=== PATIENT | female | born 1985 | race Caucasian/White ===

== ENCOUNTER 2017-02-15 08:51 | Emergency (ER) | payer OTHER ==
[~2017-02-15 08:51] MED LIST: HYDROCODONE BIT1 T11 PO; IBU800 MG PO; LOMOTIL 0.025 M1 TA1 PO; MACROBID100 M1 PO; MOTRIN,RUFEN800 MG PO; MOTRIN800 MG PO; PEN-VEE K500 MG PO; PENICILLIN-VK500 M1 PO; PENICILLIN-VK500 MG PO; TRAMADOL HCL50 MG PO; TRIMOX500 MG PO; ZOFRAN ODT4 MG SL
[2017-02-15 09:37] LABS: B-hCG (QUALITATIVE) NEGATIVE (NEGATIVE); C-REACTIVE PROTEIN 0.61 MG/DL (0-0.3)
[2017-02-15 09:38] LABS: BASO % 0.3 % (0.0-1.0); EOS # 0.2 10*3/uL (0.0-0.4); EOS % 1.8 % (1.0-4.0); HEMATOCRIT 39.2 % (37.0-47.0); HEMOGLOBIN 12.8 g/dl (12.0-16.0); LYMPH # 2.1 10*3/uL (1.3-4.4); LYMPH % 16.6 % (27.0-41.0); MEAN CELL VOLUME 92.7 fl (81.0-99.0); MEAN CORPUSCULAR HGB 30.3 pg (27.0-31.0); MEAN CORPUSCULAR HGB CONC 32.7 g/dl (33.0-37.0); MEAN PLATELET VOLUME 10.4 fl (9.6-12.3); MONO # 0.9 10*3/uL (0.1-1.0); MONO % 6.9 % (3.0-9.0); NEUT # 9.3 10*3/uL (2.3-7.9); NEUT % 74.1 % (47.0-73.0); PLATELET COUNT AUTOMATED 310 10*3/uL (130-400); RED BLOOD COUNT 4.23 10*6/uL (4.10-5.10); RED CELL DISTRI WIDTH 13.2 % (0-14.5); WHITE BLOOD COUNT 12.6 10*3/uL (4.8-10.8)
[2017-02-15 09:43] LABS: BILIRUBIN NEGATIVE (NEGATIVE); BLOOD NEGATIVE (NEGATIVE); CLARITY SL CLOUDY (CLEAR); COLOR YELLOW (YELLOW); GLUCOSE NEGATIVE (NEGATIVE); KETONE NEGATIVE (NEGATIVE); LEUKO ESTERASE NEGATIVE (NEGATIVE); NITRITE NEGATIVE (NEGATIVE); PROTEIN NEGATIVE (NEGATIVE); TROPONIN I < 0.015 ng/ml (<0.045); UROBILINOGEN 0.2 E.U./dl (0.2-1.0)
[2017-02-15 09:47] LABS: URINE AMPHETAMINES < 1000 (1000ng/ml); URINE BARBITURATES < 200 (200ng/ml); URINE COCAINE < 300 (300ng/ml)
[2017-02-15 09:51] LABS: ALBUMIN 3.7 gm/dl (3.1-4.5); ALKALINE PHOSPHATASE 72 U/L (45-117); BILIRUBIN, TOTAL 0.5 mg/dl (0.2-1.0); BUN 6 mg/dl (7-24); CARBON DIOXIDE 25 mmol/L (21-32); CHLORIDE 109 mmol/L (98-107); EST GLOM FILT AFRICAN AMERICAN > 60 ml/min; GLUCOSE 102 mg/dL (65-99); POTASSIUM 3.7 mmol/L (3.5-5.1); SGOT/AST 14 IU/L (3-35); SGPT/ALT 23 U/L (12-78); SODIUM 142 mmol/L (136-145); TOTAL PROTEIN 7.2 gm/dL (6.4-8.2)
[2017-02-15 09:56] LABS: BACTERIA TRACE
[2017-02-15 09:57] LABS: URINE REFLEX COMMENT NO (NO)
[2017-02-15] MEDS ORDERED: CLINDAMYCIN HC300 MG PO (10:12)
[2017-02-15] MEDS ORDERED: Motrin,Rufen800 MG PO (10:12)
[2017-02-15] MEDS ORDERED: ULTRAM50 MG PO (10:12)
[2017-02-15] MEDS ORDERED: PEPCID20 MG PO (10:12)
== END 2017-02-15 10:50 | disposition home or self-care (01) ==
LOC: ED 08:51
PROVIDERS: Emergency Medicine Emergency Medical Services; Family Medicine Adult Medicine
DX: K29.00 Acute gastritis without bleeding (principal); K04.01 Reversible pulpitis; K02.9 Dental caries, unspecified; G43.909 Migraine, unspecified, not intractable, without status migrainosus; F17.200 Nicotine dependence, unspecified, uncomplicated

== ENCOUNTER 2017-02-21 19:42 | Emergency (ER) | payer OTHER ==
[~2017-02-21] VITALS: Ht 172.7 cm; Wt 83.9 kg
[~2017-02-21 19:42] MED LIST changes: +CLINDAMYCIN HC300 MG PO; +Motrin,Rufen800 MG PO; +PEPCID20 MG PO; +ULTRAM50 MG PO
[2017-02-21] MEDS ORDERED: ACETAMINOPHEN500 M5 PO (20:10)
[2017-02-21] MEDS ORDERED: NYSTATIN100000 U/M PO (21:04)
[2017-02-21] MEDS ORDERED: DIFLUCAN150 MG PO (21:04)
[2017-02-21] MEDS ORDERED: CEPHALEXIN500 M1 PO (21:04)
[2017-02-21] MEDS ORDERED: CLARITIN10 MG PO (21:05)
== END 2017-02-21 21:08 | disposition home or self-care (01) ==
LOC: ED 19:42
DX: H65.92 Unspecified nonsuppurative otitis media, left ear (principal); F17.200 Nicotine dependence, unspecified, uncomplicated

== ENCOUNTER 2017-09-03 23:29 | Emergency (ER) | payer OTHER ==
[~2017-09-03] VITALS: Ht 172.7 cm; Wt 83.9 kg
--- NOTE | ~2017-09-03 | EKG ---
[place], [place] ELECTROCARDIOGRAM REPORT NAME: YOSELIN AVILA UNIT #: [id number] ROOM: DOCTOR: REY SANCHEZ MD BIRTHDATE: [birth year] DOS: 09/03/2017 TIME: 2353 hours. Normal sinus rhythm at 60 beats per minute. A short DE interval of 110 milliseconds. Otherwise ECG is normal. No previous tracing is available for comparison. REY SANCHEZ MD CM:EKGRPT:ELECTROCARDIOGRAM REPORT [id number] REY SANCHEZ MD
[~2017-09-03 23:29] MED LIST changes: +ACETAMINOPHEN500 M5 PO; +CEPHALEXIN500 M1 PO; +CLARITIN10 MG PO; +DIFLUCAN150 MG PO; +NYSTATIN100000 U/M PO
[2017-09-03] MEDS ORDERED: PROVENTIL HFA6.7 GM DEVI (23:51)
[2017-09-03] MEDS ORDERED: ZITHROMAX TRI-500 M1 PO (23:51)
== END 2017-09-03 23:32 | disposition home or self-care (01) ==
LOC: ED 23:29
DX: J40 Bronchitis, not specified as acute or chronic (principal); F17.200 Nicotine dependence, unspecified, uncomplicated; G43.909 Migraine, unspecified, not intractable, without status migrainosus

== ENCOUNTER 2018-01-27 14:33 | Emergency (ER) | payer OTHER ==
[~2018-01-27] VITALS: Ht 172.7 cm; Wt 83.9 kg
[~2018-01-27 14:33] MED LIST changes: +PROVENTIL HFA6.7 GM DEVI; +ZITHROMAX TRI-500 M1 PO
[2018-01-27 15:39] LABS: BILIRUBIN NEGATIVE (NEGATIVE); BLOOD TRACE-INTACT (NEGATIVE); CLARITY SL CLOUDY (CLEAR); COLOR YELLOW (YELLOW); GLUCOSE NEGATIVE (NEGATIVE); KETONE NEGATIVE (NEGATIVE); LEUKO ESTERASE 1+ (NEGATIVE); NITRITE NEGATIVE (NEGATIVE); SPECIFIC GRAVITY 1.015 (1.005-1.030); UROBILINOGEN 0.2 E.U./dl (0.2-1.0)
[2018-01-27 15:47] LABS: BASO % 0.3 % (0.0-1.0); EOS # 0.1 10*3/uL (0.0-0.4); EOS % 0.6 % (1.0-4.0); HEMATOCRIT 35.5 % (37.0-47.0); HEMOGLOBIN 12.1 g/dl (12.0-16.0); LYMPH # 1.6 10*3/uL (1.3-4.4); LYMPH % 12.1 % (27.0-41.0); MEAN CELL VOLUME 89.6 fl (81.0-99.0); MEAN CORPUSCULAR HGB 30.6 pg (27.0-31.0); MEAN CORPUSCULAR HGB CONC 34.1 g/dl (33.0-37.0); MEAN PLATELET VOLUME 10.7 fl (9.6-12.3); MONO # 0.5 10*3/uL (0.1-1.0); MONO % 3.6 % (3.0-9.0); NEUT # 11.2 10*3/uL (2.3-7.9); PLATELET COUNT AUTOMATED 284 10*3/uL (130-400); RED BLOOD COUNT 3.96 10*6/uL (4.10-5.10); RED CELL DISTRI WIDTH 12.3 % (0-14.5); WHITE BLOOD COUNT 13.4 10*3/uL (4.8-10.8)
[2018-01-27 15:56] LABS: BACTERIA 2+
[2018-01-27 16:02] LABS: WBC 51-100 wbc/hpf (0-5)
[2018-01-27 16:04] LABS: ALBUMIN 3.4 gm/dl (3.1-4.5); ALKALINE PHOSPHATASE 51 U/L (45-117); BUN 4 mg/dl (7-24); CHLORIDE 104 mmol/L (98-107); CREATININE 0.42 mg/dL (0.55-1.02); LIPASE 74 U/L (73-393); POTASSIUM 3.3 mmol/L (3.5-5.1); SGOT/AST 8 IU/L (3-35); SGPT/ALT 13 U/L (12-78); SODIUM 136 mmol/L (136-145); TOTAL PROTEIN 6.8 gm/dL (6.4-8.2)
[2018-01-27] MEDS ORDERED: AMINOPHYLLIN200 MG PO (17:01)
[2018-01-27] MEDS ORDERED: DICLEGIS DR 101 EACH PO (17:03)
== END 2018-01-27 17:06 | disposition home or self-care (01) ==
LOC: ED 14:33
PROVIDERS: Physician Assistant
DX: O23.41 Unspecified infection of urinary tract in pregnancy, first trimester (principal); O99.331 Smoking (tobacco) complicating pregnancy, first trimester; F17.200 Nicotine dependence, unspecified, uncomplicated; Z3A.08 8 weeks gestation of pregnancy

== ENCOUNTER 2019-09-06 18:01 | Emergency (ER) | payer OTHER ==
[~2019-09-06] VITALS: Ht 172.7 cm; Wt 81.6 kg
[~2019-09-06 18:01] MED LIST changes: +AMINOPHYLLIN200 MG PO; +DICLEGIS DR 101 EACH PO
[2019-09-06 19:54] LABS: BASO # 0.1 10*3/uL (0.0-0.1); BASO % 0.5 % (0.0-1.0); EOS # 0.2 10*3/uL (0.0-0.4); EOS % 1.4 % (1.0-4.0); HEMATOCRIT 39.6 % (37.0-47.0); LYMPH # 1.8 10*3/uL (1.3-4.4); LYMPH % 14.1 % (27.0-41.0); MEAN CORPUSCULAR HGB 29.9 pg (27.0-31.0); MEAN CORPUSCULAR HGB CONC 32.8 g/dl (33.0-37.0); MEAN PLATELET VOLUME 10.9 fl (9.6-12.3); MONO # 0.8 10*3/uL (0.1-1.0); MONO % 6.1 % (3.0-9.0); NEUT # 9.9 10*3/uL (2.3-7.9); NEUT % 77.6 % (47.0-73.0); PLATELET COUNT AUTOMATED 230 10*3/uL (130-400); RED BLOOD COUNT 4.35 10*6/uL (4.10-5.10); RED CELL DISTRI WIDTH 12.7 % (0-14.5); WHITE BLOOD COUNT 12.8 10*3/uL (4.8-10.8)
[2019-09-06 20:09] LABS: ALBUMIN 3.8 gm/dl (3.1-4.5); ALKALINE PHOSPHATASE 77 U/L (45-117); BUN 7 mg/dl (7-24); CHLORIDE 109 mmol/L (98-107); CREATININE 0.73 mg/dL (0.55-1.02); POTASSIUM 3.1 mmol/L (3.5-5.1); SGOT/AST 5 IU/L (3-35); SGPT/ALT 10 U/L (12-78); SODIUM 139 mmol/L (136-145); TOTAL PROTEIN 7.1 gm/dL (6.4-8.2)
[2019-09-06] MEDS ORDERED: AUGMENTIN 875-875 MG PO (20:16)
== END 2019-09-06 20:10 | disposition left against medical advice (07) ==
LOC: ED 18:01
PROVIDERS: Nurse Practitioner Family
DX: K02.9 Dental caries, unspecified (principal); G43.909 Migraine, unspecified, not intractable, without status migrainosus; Z79.2 Long term (current) use of antibiotics; Z79.899 Other long term (current) drug therapy

== ENCOUNTER 2019-09-06 21:53 | Emergency (ER) | payer OTHER ==
[~2019-09-06] VITALS: Ht 172.7 cm; Wt 81.6 kg
[~2019-09-06 21:53] MED LIST changes: +AUGMENTIN 875-875 MG PO
== END 2019-09-07 00:27 | disposition home or self-care (01) ==
LOC: ED 21:53
DX: K04.7 Periapical abscess without sinus (principal); Z79.2 Long term (current) use of antibiotics; Z79.899 Other long term (current) drug therapy

== ENCOUNTER 2020-01-08 06:56 | Emergency (ER) | payer OTHER ==
[~2020-01-08] VITALS: Ht 172.7 cm; Wt 81.6 kg
== END 2020-01-08 09:03 | disposition home or self-care (01) ==
LOC: ED 06:56
DX: S93.602A Unspecified sprain of left foot, initial encounter (principal); G43.909 Migraine, unspecified, not intractable, without status migrainosus; W01.0XXA Fall on same level from slipping, tripping and stumbling without subsequent striking against object, initial encounter; Y93.89 Activity, other specified; Y92.480 Sidewalk as the place of occurrence of the external cause; Y99.8 Other external cause status

== ENCOUNTER → 2021-08-19 | Outpatient (CLI) | payer OTHER | END | disposition home or self-care (01) | LOC: COVID19 18:54 | PROVIDERS: ATTEND Internal Medicine | DX: U07.1 COVID-19 (principal) ==

== ENCOUNTER 2021-10-22 13:33 | Emergency (ER) | payer OTHER ==
[~2021-10-22] VITALS: Ht 172.7 cm; Wt 77.1 kg
[2021-10-22 17:14] LABS: BASO # 0.1 10*3/uL (0.0-0.1); BASO % 0.4 % (0.0-1.0); EOS # 0.2 10*3/uL (0.0-0.4); EOS % 1.7 % (1.0-4.0); HEMATOCRIT 34.9 % (37.0-47.0); LYMPH # 1.8 10*3/uL (1.3-4.4); MEAN CELL VOLUME 91.1 fl (81.0-99.0); MEAN CORPUSCULAR HGB 30.5 pg (27.0-31.0); MEAN CORPUSCULAR HGB CONC 33.5 g/dl (33.0-37.0); MEAN PLATELET VOLUME 10.1 fl (9.6-12.3); MONO # 0.6 10*3/uL (0.1-1.0); MONO % 5.2 % (3.0-9.0); NEUT # 8.5 10*3/uL (2.3-7.9); NEUT % 76.2 % (47.0-73.0); PLATELET COUNT AUTOMATED 317 10*3/uL (130-400); RED BLOOD COUNT 3.83 10*6/uL (4.10-5.10); WHITE BLOOD COUNT 11.2 10*3/uL (4.8-10.8)
[2021-10-22 17:26] LABS: BILIRUBIN Negative (Negative); BLOOD Negative (Negative); CLARITY Clear (Clear); COLOR Yellow (Yellow); GLUCOSE Negative (Negative); KETONE Negative (Negative); LEUKO ESTERASE 2+ (Negative); NITRITE Negative (Negative); UROBILINOGEN 0.2 E.U./dl (0.0-1.0)
[2021-10-22 17:31] LABS: ALBUMIN 2.7 gm/dl (3.1-4.5); ALKALINE PHOSPHATASE 56 U/L (45-117); BUN 5 mg/dl (7-24); CHLORIDE 108 mmol/L (98-107); CREATININE 0.39 mg/dL (0.55-1.02); LIPASE 56 U/L (73-393); POTASSIUM 3.5 mmol/L (3.5-5.1); SGOT/AST 7 IU/L (3-35); SGPT/ALT 11 U/L (12-78); SODIUM 137 mmol/L (136-145); TOTAL PROTEIN 6.6 gm/dL (6.4-8.2)
[2021-10-22 17:45] LABS: BACTERIA TRACE; WBC 41-50 wbc/hpf (0-5)
[2021-10-22] MEDS ORDERED: METRONIDAZOLE500 M1 PO (19:24)
[2021-10-22] MEDS ORDERED: CEPHALEXIN500 M1 PO (19:24)
== END 2021-10-22 20:09 | disposition home or self-care (01) ==
LOC: ED 13:33
PROVIDERS: Physician Assistant
DX: O44.02 Complete placenta previa NOS or without hemorrhage, second trimester (principal); Z3A.22 22 weeks gestation of pregnancy

== ENCOUNTER 2025-07-25 16:40 | Emergency (ER) | payer OTHER ==
[~2025-07-25 16:40] MED LIST changes: +METRONIDAZOLE500 M1 PO
[2025-07-25 17:52] LABS: URINE AMPHETAMINES Negative (1000ng/ml); URINE BARBITURATES Negative (200ng/ml); URINE BENZODIAZEPINES Negative (200ng/ml); URINE CANNABINOIDS (THC) Positive (50ng/ml); URINE COCAINE Negative (300ng/ml); URINE METHADONE Negative (300ng/ml); URINE OPIATES Negative (300ng/ml); URINE PHENCYCLIDINE Negative (25ng/ml)
== END 2025-07-25 18:52 | disposition home or self-care (01) ==
LOC: ED 16:40
PROVIDERS: Nurse Practitioner
DX: R82.5 Elevated urine levels of drugs, medicaments and biological substances (principal); K21.9 Gastro-esophageal reflux disease without esophagitis; Z79.899 Other long term (current) drug therapy